=== PATIENT | male | born 1965 | race Caucasian/White ===

== ENCOUNTER 2024-04-05 16:19 | Inpatient (IN) ==
[2024-04-05 17:24] LABS: ABS Lymphocytes 0.6 10^3/uL (1.0-4.8); ABS Monocytes 1.5 10^3/uL (0.0-1.1); ABS Neutrophils 17.8 10^3/uL (1.5-7.6); Eosinophil % 0.2 %; Hematocrit 48.8 % (38-53); Hemoglobin 16.2 g/dL (13.2-16.3); Mean Corpuscular Hemoglobin 31.4 pg (27-33); Mean Corpuscular Hgb Conc 33.2 g/dL (31-36); Mean Corpuscular Volume 94.5 fL (80-97); Mean Platelet Volume 8.3 fL (7.5-11.2); Platelet Count 325 10^3/uL (150-450); Red Blood Count 5.16 10^6/uL (4.06-5.63); Red Cell Distribution Width 14.2 % (12-17)
[2024-04-05] MEDS: Lactated Ringers SEPSIS* BAG 2,260 ML IV ONE (17:58)
[2024-04-05] MEDS: Ondansetron 4 mg VIAL 2 MG/ML 2 ml VIAL IV ONE (18:00)
[2024-04-05] MEDS: Acetaminophen IV 1 GM/100ML 1,000 MG/100 ML BAG IV ONE (18:00)
[2024-04-05 18:19] LABS: Albumin 3.8 g/dL (3.2-5.2); Albumin/Globulin Ratio 1.1 (1-3); C Reactive Protein 304.86 mg/L (<8.01); Calcium 8.7 mg/dL (8.6-10.3); Creatinine, Serum 1.43 mg/dL (0.67-1.17); Globulin 3.5 g/dL (2-4); Potassium 4.7 mmol/L (3.5-5.0); Total Bilirubin 0.6 mg/dL (0.2-1.0); Total Protein 7.3 g/dL (6.4-8.9); eGFR CKD-EPI 56.8 (>60)
[2024-04-05] MEDS: Cefepime 2 GM in Dextrose 2 GM/50 ML BAG IV ONE (18:54)
[2024-04-05] MEDS ORDERED: Vancomycin 2,000 MG in NS 0.9% 250 ml 250 ML IVPB SCH (19:00)
[2024-04-05] MEDS: Vancomycin 2,000 MG in NS 0.9% 500 ml BAG 500 ML IVPB ONE (19:46)
[2024-04-05 21:15] LABS: Erythrocyte Sed Rate 66 mm/Hr (0-19)
[2024-04-05 22:09] LABS: Urine Appearance Clear; Urine Bilirubin Negative (Negative); Urine Blood Trace (Negative); Urine Color Light-Yellow; Urine Glucose Negative (Negative); Urine Ketones Trace (Negative); Urine Nitrite Negative (Negative); Urine Protein Trace (Negative); Urine Specific Gravity 1.013 (1.002-1.030); Urine Urobilinogen Negative (Negative)
[2024-04-05] MEDS ORDERED: Dextrose 50% Syringe 50 ml 25 GM/50 ML SYRINGE IV PUSH PRN (22:23)
[2024-04-05] MEDS ORDERED: Vancomycin per Pharmacy 1 EA NOTE FOLLOW UP SCH (23:00)
[2024-04-05] MEDS: Enoxaparin 40 MG/0.4 ML SYR SUBCUT SCH (23:09)
[2024-04-06] MEDS ORDERED: Cefepime 2 GM in Dextrose 2 GM/50 ML BAG IV SCH (02:00)
[2024-04-06] MEDS: Cefepime 2 GM in Dextrose 2 GM/50 ML BAG IV SCH (02:23)
[2024-04-06] MEDS: Vancomycin 1000 MG in NS 0.9% 250 ML IVPB SCH (06:09)
[2024-04-06 08:03] LABS: C Reactive Protein 219.94 mg/L (<8.01); Magnesium 1.8 mg/dL (1.9-2.7)
[2024-04-06 08:07] LABS: ABS Eosinophils 0.1 10^3/uL (0.0-0.5); ABS Lymphocytes 0.5 10^3/uL (1.0-4.8); ABS Monocytes 1.1 10^3/uL (0.0-1.1); ABS Neutrophils 8.9 10^3/uL (1.5-7.6); Eosinophil % 1.4 %; Hematocrit 45.7 % (38-53); Hemoglobin 15.5 g/dL (13.2-16.3); Lymphocyte % 4.4 %; Mean Corpuscular Hemoglobin 32.7 pg (27-33); Mean Corpuscular Hgb Conc 33.9 g/dL (31-36); Mean Corpuscular Volume 96.5 fL (80-97); Mean Platelet Volume 8.6 fL (7.5-11.2); Platelet Count 213 10^3/uL (150-450); Red Blood Count 4.74 10^6/uL (4.06-5.63); Red Cell Distribution Width 14.5 % (12-17); White Blood Count 10.7 10^3/uL (3.6-10.2)
[2024-04-06] MEDS: Insulin GLARGINE 100 un/ml 10 ml VIAL SUBCUT SCH ×2 (08:27→10:52)
[2024-04-06] MEDS: Magnesium Sulfate 2 gm BAG 2 GM/50 ML BAG IVPB ONE (09:31)
[2024-04-07 06:32] LABS: ABS Basophils 0.1 10^3/uL (0.0-0.1); ABS Eosinophils 0.3 10^3/uL (0.0-0.5); ABS Monocytes 1.3 10^3/uL (0.0-1.1); ABS Neutrophils 5.4 10^3/uL (1.5-7.6); Eosinophil % 4.3 %; Hematocrit 43.3 % (38-53); Hemoglobin 14.8 g/dL (13.2-16.3); Lymphocyte % 12.6 %; Mean Corpuscular Hemoglobin 32.2 pg (27-33); Mean Corpuscular Hgb Conc 34.3 g/dL (31-36); Mean Corpuscular Volume 93.8 fL (80-97); Mean Platelet Volume 8.2 fL (7.5-11.2); Platelet Count 301 10^3/uL (150-450); Red Blood Count 4.61 10^6/uL (4.06-5.63); Red Cell Distribution Width 14.1 % (12-17); White Blood Count 8.1 10^3/uL (3.6-10.2)
[2024-04-07 07:02] LABS: Calcium 8.1 mg/dL (8.6-10.3); Creatinine, Serum 1.29 mg/dL (0.67-1.17); Magnesium 1.8 mg/dL (1.9-2.7); Phosphorus 3.4 mg/dL (2.5-5.0); Potassium 4.2 mmol/L (3.5-5.0); eGFR CKD-EPI 64.3 (>60)
[2024-04-07] MEDS: Vancomycin Trough Check NOTE FOLLOW UP ONE (07:13)
[2024-04-07] MEDS: Vancomycin 1,500 MG in NS 0.9% 250 ml 250 ML IVPB SCH (19:59)
[2024-04-08 06:53] LABS: ABS Basophils 0.1 10^3/uL (0.0-0.1); ABS Eosinophils 0.4 10^3/uL (0.0-0.5); ABS Lymphocytes 1.4 10^3/uL (1.0-4.8); ABS Monocytes 1.2 10^3/uL (0.0-1.1); ABS Neutrophils 4.9 10^3/uL (1.5-7.6); ABS Nucleated RBC 0.01 10^3/ul; Eosinophil % 5.4 %; Hematocrit 44.6 % (38-53); Hemoglobin 15.2 g/dL (13.2-16.3); Lymphocyte % 17.9 %; Mean Corpuscular Hemoglobin 31.6 pg (27-33); Mean Corpuscular Volume 93.1 fL (80-97); Mean Platelet Volume 7.6 fL (7.5-11.2); Nucleated Red Blood Cells % 0.1 %/100WBC (0.0-0.8); Platelet Count 291 10^3/uL (150-450); Red Blood Count 4.79 10^6/uL (4.06-5.63); Red Cell Distribution Width 13.9 % (12-17)
[2024-04-08 07:17] LABS: Albumin 3.1 g/dL (3.2-5.2); Calcium 8.5 mg/dL (8.6-10.3); Creatinine, Serum 1.22 mg/dL (0.67-1.17); Globulin 3.1 g/dL (2-4); Potassium 4.3 mmol/L (3.5-5.0); Total Bilirubin 0.4 mg/dL (0.2-1.0); Total Protein 6.2 g/dL (6.4-8.9); eGFR CKD-EPI 68.7 (>60)
[2024-04-08] MEDS: cefTRIAXone 2 gm/50 mL D5W 2 GM/50 ML BAG IV SCH (10:39)
[2024-04-08] MEDS: Sulfur Hexaflouride MICROSPHR 25 MG VIAL IV PRN (12:06)
[2024-04-08] MEDS: ceFAZolin 2 GM PREMIX 2 GM/50 ML BAG IV SCH (13:17)
[2024-04-09] MEDS ORDERED: Vancomycin Trough Check NOTE FOLLOW UP ONE (05:30)
[2024-04-09 06:00] LABS: Creatinine, Serum 1.19 mg/dL (0.67-1.17); Vancomycin Trough 8.2 mcg/mL; eGFR CKD-EPI 70.8 (>60)
[2024-04-09 07:16] LABS: Hematocrit 45.3 % (38-53); Hemoglobin 15.4 g/dL (13.2-16.3); Mean Corpuscular Hgb Conc 34.1 g/dL (31-36); Mean Corpuscular Volume 93.9 fL (80-97); Mean Platelet Volume 8.2 fL (7.5-11.2); Platelet Count 318 10^3/uL (150-450); Red Blood Count 4.82 10^6/uL (4.06-5.63); Red Cell Distribution Width 13.7 % (12-17); White Blood Count 9.5 10^3/uL (3.6-10.2)
[2024-04-09 07:24] LABS: Potassium 4.3 mmol/L (3.5-5.0)
[2024-04-09 07:25] LABS: Calcium 8.6 mg/dL (8.6-10.3); Magnesium 1.5 mg/dL (1.9-2.7)
[2024-04-09] MEDS: Magnesium Sulf 4 GM/100 ML IV 4,000 MG/100 ML BAG IVPB ONE (09:28)
[2024-04-09] MEDS ORDERED: fentaNYL 100 mcg/2 ml 50 MCG/ML VIAL ONE (10:18)
[2024-04-09] MEDS ORDERED: Midazolam 2 mg/2 ml VIAL 1 mg/ml 2 ml VIAL (2 mg) ONE (10:18)
[2024-04-09] MEDS ORDERED: Propofol 10 MG/ML 20 ML BTL ONE (10:20)
[2024-04-09] MEDS ORDERED: Lidocaine 1% VIAL 10 MG/ML 30 ML VIAL ONE (11:33)
[2024-04-09] MEDS ORDERED: ceFAZolin VIAL VIAL ONE (11:38)
[2024-04-09] MEDS ORDERED: HYDROmorphone 1 MG/1 ML SYRINGE IV PRN (11:47)
[2024-04-09] MEDS ORDERED: fentaNYL 100 mcg/2 ml 50 MCG/ML VIAL IV PRN (11:47)
[2024-04-09] MEDS ORDERED: Naloxone 0.4 mg VIAL 0.4 mg/ml 1 ml VIAL IV PRN (11:47)
[2024-04-09] MEDS ORDERED: Ondansetron 4 mg VIAL 2 MG/ML 2 ml VIAL IV PRN (11:47)
[2024-04-09] MEDS ORDERED: Acetaminophen IV 1 GM/100ML 1,000 MG/100 ML BAG IV ONE (11:49)
[2024-04-09] MEDS: Metoclopramide 5 MG/ML VIAL (10 mg) IV SLOW PU ONE (17:11)
[2024-04-10 07:00] LABS: ABS Basophils 0.1 10^3/uL (0.0-0.1); ABS Eosinophils 0.5 10^3/uL (0.0-0.5); ABS Lymphocytes 1.5 10^3/uL (1.0-4.8); ABS Monocytes 1.1 10^3/uL (0.0-1.1); ABS Neutrophils 6.6 10^3/uL (1.5-7.6); ABS Nucleated RBC 0.01 10^3/ul; Eosinophil % 5.2 %; Hematocrit 45.2 % (38-53); Hemoglobin 15.6 g/dL (13.2-16.3); Lymphocyte % 15.6 %; Mean Corpuscular Hemoglobin 32.2 pg (27-33); Mean Corpuscular Hgb Conc 34.5 g/dL (31-36); Mean Corpuscular Volume 93.5 fL (80-97); Mean Platelet Volume 7.6 fL (7.5-11.2); Nucleated Red Blood Cells % 0.1 %/100WBC (0.0-0.8); Platelet Count 332 10^3/uL (150-450); Red Blood Count 4.83 10^6/uL (4.06-5.63); Red Cell Distribution Width 13.7 % (12-17); White Blood Count 9.8 10^3/uL (3.6-10.2)
[2024-04-10 07:14] LABS: Albumin 3.2 g/dL (3.2-5.2); Calcium 8.6 mg/dL (8.6-10.3); Creatinine, Serum 1.22 mg/dL (0.67-1.17); Globulin 3.2 g/dL (2-4); Magnesium 1.7 mg/dL (1.9-2.7); Potassium 4.6 mmol/L (3.5-5.0); Total Bilirubin 0.3 mg/dL (0.2-1.0); Total Protein 6.4 g/dL (6.4-8.9); eGFR CKD-EPI 68.7 (>60)
[2024-04-10 14:47] VITALS: BP 140/72
== END 2024-04-10 16:20 | disposition home or self-care (01) | DRG 710 ==
LOC: ED 16:19 → EDHOLD 16:19 → SUATTDRO 21:16 → MED 04-06 00:41
PROVIDERS: ADMIT Internal Medicine; ATTEND Internal Medicine